=== PATIENT | female | born 1980 | race African-American/Black ===

== ENCOUNTER 2021-12-22 12:53 | Emergency (ER) | payer OTHER ==
[2021-12-22] MEDS ORDERED: MORPHINE 4 MG/ML SYR ONE (13:17)
[2021-12-22] MEDS ORDERED: ONDANSETRON 4 MG/2 ML VIAL ONE (13:17)
--- NOTE | 2021-12-22 13:30 | RAD REPORT ---
EXAM DESCRIPTION: RAD - Chest Single View - 12/22/2021 1:25 pm CLINICAL HISTORY: syncope COMPARISON: No comparisons FINDINGS: Lines: None. Lungs: No evidence of edema or pneumonia. Pleural: No significant pleural effusions or pneumothorax. Cardiac: The heart size is within normal limits. Bones: No acute fractures. Other: IMPRESSION: No acute cardiopulmonary disease.
[2021-12-22 13:49] LABS: Urine Blood Negative (Negative); Urine Glucose Negative (Negative); Urine Protein Negative (Negative); Urine Specific Gravity 1.025 (1.005-1.030)
[2021-12-22 13:56] LABS: Absolute Lymphocytes (CBC) 1.3 K/uL (0.7-4.9); Hematocrit 35.8 % (36.0-45.0); Lymphocytes % 17.7 % (15.3-44.8); MPV 7.6 fL (7.6-11.3); Protime INR 1.04; RBC Red Blood Cell Count 3.69 M/uL (3.86-4.86)
[2021-12-22 14:12] LABS: Albumin 3.4 g/dL (3.4-5.0); Bilirubin Direct 0.1 mg/dL (0-0.2); Bilirubin Total 0.3 mg/dL (0.2-1.0); Potassium 3.8 mmol/L (3.5-5.1); Protein, Total 6.7 g/dL (6.4-8.2); Troponin High Sensitivity 5.8 pg/mL (<58.9)
[2021-12-22 14:15] LABS: Urine Bacteria <20 /HPF (<20); Urine Mucus 1+ /HPF (NONE SEEN); Urine RBC <5 /HPF (NONE SEEN); Urine Trichomonas PRESENT (NONE SEEN)
[2021-12-22] MEDS ORDERED: LORazepam 2 MG/ML VIAL ONE (15:05)
--- NOTE | 2021-12-22 15:48 | RAD REPORT ---
EXAM DESCRIPTION: CTAngio Aorta For Dissection - 12/22/2021 3:38 pm CLINICAL HISTORY: abdominal pain COMPARISON: No comparisons TECHNIQUE: CT of the chest, abdomen, and pelvis was performed IV contrast using a CTA protocol of [facility] aorta. . All CT scans are performed using dose optimization technique as appropriate and may include automated exposure control or mA/KV adjustment according to patient size. FINDINGS: Thorax: Chest Wall: No abnormal mass Lungs: No acute abnormality. Pleura: No effusions or pneumothorax. Arabella/Mediastinum: No lymphadenopathy. Aorta/Pulmonary Arteries: Unremarkable Heart: Normal size. Abdomen/Pelvis: Liver: No acute abnormality or suspicious lesions. Biliary: No biliary ductal dilatation. Stomach: No significant focal abnormality. Duodenum: No significant focal abnormality. Pancreas: No significant abnormality. Spleen: No significant abnormality. Adrenal: No suspicious lesions. Kidney/ureter: No hydronephrosis. No renal calculi. Retroperitoneum: No retroperitoneal adenopathy. Vascular: No aneurysm. Bowel: No significant focal abnormality. Normal appendix. Peritoneum: Small volume of pelvic free fluid which is likely physiologic. Bladder: Grossly unremarkable. Reproductive: No adnexal masses. Bones: No acute fracture. Other: n/a IMPRESSION: No acute findings within the chest, abdomen, or pelvis. Specifically, no evidence of aor tic aneurysm or dissection. No pulmonary embolus.
--- NOTE | 2021-12-22 16:21 | ER ---
Nurse's Notes [facility] Name: Adriana Vogel Age: 41 yrs Sex: Female : 1980 Arrival Date: 12/22/2021 Time: 12:56 Bed 6 Private MD: Diagnosis: Lower abdominal pain, unspecified;UTI/ Urinary tract infection, site not specified;Syncope Near Presentation: 12/22 12:56 Chief complaint: EMS states: "pt was is reporting sudden lower abdominal pain. 20 G jd3 right wrist. 50 mcg of Fentanyl and 4 mg of Zofran.". Coronavirus screen: At this time, the client does not indicate any symptoms associated with coronavirus-19. Ebola Screen: No symptoms or risks identified at this time. Initial Sepsis Screen: Does the patient meet any 2 criteria? No. Patient's initial sepsis screen is negative. Does the patient have a suspected source of infection? No. Patient's initial sepsis screen is negative. Risk Assessment: Do you want to hurt yourself or someone else? Patient reports no desire to harm self or others. Onset of symptoms was December 22, 2021. 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 - Social history:: Smoking status: Patient denies any tobacco usage or history of. Screenin:05 Abuse screen: Denies threats or abuse. Nutritional screening: No deficits noted. jd3 Tuberculosis screening: No symptoms or risk factors identified. Fall Risk Ambulatory Aid- None/Bed Rest/Nurse Assist (0 pts). Gait- Normal/Bed Rest/Wheelchair (0 pts) Mental Status- Oriented to own ability (0 pts). Total Whitfield Fall Scale indicates No Risk (0-24 pts). Assessment: 13:03 General: Appears in no apparent distress. uncomfortable, Behavior is calm, cooperative, jd3 appropriate for age. Pain: Complains of pain in right lower quadrant and left lower quadrant Quality of pain is described as sharp, tender. Neuro: Mai Agitation-Sedation Scale (RASS): 0 - Alert and Calm Level of Consciousness is awake, alert, obeys commands, Oriented to person, place, time, situation. Cardiovascular: Denies chest pain, Capillary refill < 3 seconds Patient's skin is warm and dry. Respiratory: Airway is patent Respiratory effort is even, unlabored, Respiratory pattern is regular, symmetrical, Denies cough, shortness of breath. GI: Abdomen is non-distended, Abd is soft X 4 quads Abdomen is tender to palpation in right lower quadrant and left lower quadrant Reports lower abdominal pain, Patient currently denies diarrhea, nausea. : No signs and/or symptoms were reported regarding the genitourinary system. EENT: No signs and/or symptoms were reported regarding the EENT system. Derm: Skin is intact, Skin is dry, Skin is normal, Skin temperature is warm. Musculoskeletal: Circulation, motion, and sensation intact. Range of motion: intact in all extremities. 14:00 Reassessment: Patient appears in no apparent distress at this time. No changes from j previously documented assessment. Patient and/or family updated on plan of care and expected duration. Pain level reassessed. Patient is alert, oriented x 3, equal unlabored respirations, skin warm/dry/pink. 15:00 Reassessment: Patient appears in no apparent distress at this time. Patient and/or jd3 family updated on plan of care and expected duration. Pain level reassessed. Patient is alert, oriented x 3, equal unlabored respirations, skin warm/dry/pink. Patient states feeling better. 16:34 Reassessment: Patient appears in no apparent distress at this time. Patient and/or jd3 family updated on plan of care and expected duration. Pain level reassessed. Patient is alert, oriented x 3, equal unlabored respirations, skin warm/dry/pink. Patient states feeling better. Vital Signs: 13:02 BP 145 / 86; Pulse 75; Resp 17 S; Temp 98.3(O); Pulse Ox 100% on R/A; Weight 69.85 kg jd3 (R); Height 5 ft. 8 in. (172.72 cm) (R); Pain 6/10; 16:34 BP 136 / 76; Pulse 76; Resp 18 S; Pulse Ox 100% on R/A; jd3 13:02 Body Mass Index 23.42 (69.85 kg, 172.72 cm) jd3 ED Course: 12:56 Patient arrived in ED. jd3 12:57 Gerard Flanagan PA is PHCP. cp 12:58 Isac Donovan MD is Attending Physician. cp 13:00 Maintain EMS IV. Dressing intact. Good blood return noted. Site clean \\T\\ dry. Gauge \\T\\ jg 9 site: 20 r wrist. 13:01 Triage completed. jd3 13:02 Patricia Padron, WALLY is Primary Nurse. jg9 13:03 Arm band placed on. jd3 13:05 Patient has correct armband on for positive identification. Bed in low position. Call j light in reach. Side rails up X2. Adult w/ patient. Pulse ox on. NIBP on. 13:27 XRAY Chest (1 view) In Process Unspecified. EDMS 13:27 EKG done, by ED staff, reviewed by Gerard LANG. mb7 13:27 Basic Metabolic Panel Sent. mb7 13:28 LFT's Sent. mb7 13:28 Magnesium Sent. mb7 13:28 PT-INR Sent. mb7 13:28 Troponin HS Sent. mb7 13:28 CBC with Diff Sent. mb7 13:28 CMP Sent. mb7 13:28 Lipase Sent. mb7 14:00 Urine Microscopic Only Sent. mb7 15:34 Inserted saline lock: 22 gauge in right antecubital area, using aseptic technique. jl7 15:40 CT Aorta for Dissection In Process Unspecified. EDMS 17:08 No provider procedures requiring assistance completed. IV discontinued, intact, jl7 bleeding controlled, No redness/swelling at site. Pressure dressing applied. Administered Medications: 13:15 Drug: morphine 4 mg Route: IVP; Infused Over: 4 mins; Site: right wrist; jg9 14:00 Follow up: Response: No adverse reaction; Pain is decreased jg9 13:15 Drug: Zofran (Ondansetron) 4 mg Route: IVP; Site: right wrist; jg9 14:00 Follow up: Response: No adverse reaction; Nausea is decreased jg9 15:07 Drug: Ativan (LORazepam) 1 mg Route: IVP; Site: right wrist; jd3 15:42 Follow up: Response: No adverse reaction; Anxiety decreased jg9 16:40 Drug: metroNIDAZOLE 2 grams Route: PO; jd3 17:09 Follow up: Response: No adverse reaction jl7 16:40 Drug: Rocephin - (cefTRIAXone) 1 grams Route: IVPB; Infused Over: 30 mins; Site: right jd3 antecubital; 17:05 Follow up: Response: No adverse reaction; IV Status: Completed infusion [facility] Medication: 13:05 VIS not applicable for this client. jd3 Outcome: 16:21 Discharge ordered by MD. cp 17:08 Discharged to home via wheelchair, with family. jl7 17:08 Condition: stable 17:08 Discharge instructions given to patient, Instructed on discharge instructions, follow up and referral plans. medication usage, Demonstrated understanding of instructions, follow-up care, medications, Prescriptions given X 1. 17:09 Patient left the ED. [facility] Signatures: Dispatcher [employer] EDMS Gerard Flanagan PA PA cp Leal, Jahala, RN RN 7 Tommie Gaines RN RN jd3 Breneman, Mary [facility] Patricia Padron RN RN jg9 Corrections: (The following items were deleted from the chart) 13:41 13:27 LIPASE+C.LAB.BRZ drawn and sent. [facility] EDMS 13:41 13:28 CBC+H.LAB.BRZ drawn and sent. [facility] EDMS
--- NOTE | 2021-12-22 16:21 | EDPHYS ---
Physician Documentation [facility] Name: Adriana Vogel Age: 41 yrs Sex: Female : 1980 Arrival Date: 12/22/2021 Time: 12:56 Bed 6 Private MD: ED Physician Isac Donovan HPI: 12/22 13:28 This 41 yrs old Female presents to ER via EMS with complaints of Lower Abdomen Pain. cp 13:28 The patient presents with abdominal pain in the lower abdomen. cp 13:28 Onset: The symptoms/episode began/occurred suddenly, today. The symptoms do not cp radiate. Associated signs and symptoms: none. 13:28 The symptoms are described as constant. Severity of pain: in the emergency department cp the pain has improved mildly. 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 - Social history:: Smoking status: Patient denies any tobacco usage or history of. ROS: 13:30 Constitutional: Negative for body aches, chills, fever, poor PO intake. cp 13:30 Abdomen/GI: Positive for abdominal pain, of the right lower quadrant and left lower cp quadrant, Negative for vomiting, diarrhea, constipation, black/tarry stool, rectal bleeding. 13:30 : Negative for urinary symptoms, hematuria, vaginal bleeding. Exam: 13:25 ECG was reviewed by the Attending Physician. cp 13:35 Constitutional: The patient appears in no acute distress, alert, awake, cp non-diaphoretic, non-toxic, well developed, well nourished. 13:35 Head/Face: Normocephalic, atraumatic. cp 13:35 Eyes: Periorbital structures: appear normal, Pupils: equal, round, and reactive to cp light and accomodation, Extraocular movements: intact throughout, Conjunctiva: normal, no exudate, no injection, Sclera: no appreciated abnormality, Lids and lashes: appear normal, bilaterally. 13:35 ENT: External ear(s): are unremarkable, Nose: is normal, Mouth: Lips: moist, Oral mucosa: pink and intact, moist, Posterior pharynx: Airway: no evidence of obstruction, patent. 13:35 Neck: ROM/movement: is normal, is supple, without pain, no range of motions limitations. 13:35 Chest/axilla: Inspection: normal. 13:35 Cardiovascular: Rate: normal, Rhythm: regular. 13:35 Respiratory: the patient does not display signs of respiratory distress, Respirations: normal, no use of accessory muscles, no retractions, labored breathing, is not present, Breath sounds: are clear throughout, no decreased breath sounds, no stridor, no wheezing. 13:35 Abdomen/GI: Inspection: abdomen appears normal, Bowel sounds: active, all quadrants, Palpation: soft, in all quadrants, moderate abdominal tenderness, in the right lower quadrant and left lower quadrant, rebound tenderness, is not appreciated, voluntary guarding, is elicited in the right lower quadrant and left lower quadrant. 13:35 Back: CVA tenderness, is absent. 13:35 Neuro: Orientation: to person, place \T\ time. Mentation: is normal, Motor: moves all fours, strength is normal, Sensation: is normal. Vital Signs: 13:02 BP 145 / 86; Pulse 75; Resp 17 S; Temp 98.3(O); Pulse Ox 100% on R/A; Weight 69.85 kg jd3 (R); Height 5 ft. 8 in. (172.72 cm) (R); Pain 6/10; 16:34 BP 136 / 76; Pulse 76; Resp 18 S; Pulse Ox 100% on R/A; jd3 13:02 Body Mass Index 23.42 (69.85 kg, 172.72 cm) jd3 MDM: 13:01 Patient medically screened. cp 16:20 Data reviewed: vital signs, nurses notes, lab test result(s), radiologic studies, CT cp scan. 16:20 Differential diagnosis: appendicitis, bowel obstruction, cholecystitis, Cholelithiasis, cp diverticulitis, non-specific abd pain, Peritonitis, Pyelonephritis, Ureterolithiasis, urinary tract infection. Counseling: I had a detailed discussion with the patient and/or guardian regarding: the historical points, exam findings, and any diagnostic results supporting the discharge/admit diagnosis, lab results, radiology results, to return to the emergency department if symptoms worsen or persist or if there are any questions or concerns that arise at home. Response to treatment: the patient's symptoms have markedly improved after treatment, and as a result, I will discharge patient. Special discussion: Based on the patient's Hx, exam, and Dx evaluation, there is no indication for emergent surgery or inpatient Tx. It is understood by the patient/guardian that if the Sx's persist or worsen they need to return immediately for re-evaluation. 12/22 13:02 Order name: CBC with Diff; Complete Time: 13:57 [facility] 12/22 13:58 Interpretation: Normal except: RBC 3.69; HCT 35.8; MELISSA% 76.0. 12/22 13:02 Order name: CMP; Complete Time: 15:55 [facility] [place] 12/22 15:55 Interpretation: Normal except: CL 108; AST 13; CA 8.4; A/G 1.0. 12/22 13:02 Order name: Lipase; Complete Time: 15:55 [facility] [place] 12/22 13:04 Order name: Basic Metabolic Panel 12/22 13:04 Order name: LFT's; Complete Time: 15:55 12/22 13:04 Order name: Magnesium; Complete Time: 15:55 12/22 13:04 Order name: PT-INR; Complete Time: 13:57 12/22 13:04 Order name: Troponin HS; Complete Time: 15:55 12/22 13:04 Order name: XRAY Chest (1 view); Complete Time: 13:57 12/22 13:58 Interpretation: Report review. 12/22 13:04 Order name: Urine Microscopic Only; Complete Time: 15:55 12/22 15:55 Interpretation: Normal except: UWBC 5-10; SQEPI 5-10; TRICH PRESENT. 12/22 13:50 Order name: Urine Dipstick-Ancillary; Complete Time: 13:57 [facility] 12/22 13:58 Interpretation: Normal except: UESTR 1+. 12/22 14:23 Order name: Urine Culture EDOH 12/22 13:04 Order name: EKG; Complete Time: 13:04 12/22 13:04 Order name: Cardiac monitoring; Complete Time: 13:23 12/22 13:04 Order name: EKG - Nurse/Tech; Complete Time: 13:27 cp 12/22 13:04 Order name: IV Saline Lock; Complete Time: 13:23 cp 12/22 13:04 Order name: Labs collected and sent; Complete Time: 13:23 cp 12/22 13:04 Order name: O2 Per Protocol; Complete Time: 15:42 cp 12/22 13:04 Order name: O2 Sat Monitoring; Complete Time: 13:23 cp 12/22 13:04 Order name: Urine Dipstick-Ancillary (obtain specimen); Complete Time: 14:00 cp 12/22 13:04 Order name: CT Aorta for Dissection; Complete Time: 15:55 cp EC:25 Rate is 63 beats/min. Rhythm is regular. IN interval is normal. QRS interval is normal. cp QT interval is normal. T waves are Inverted in lead aVR. Interpreted by me. Reviewed by me. Administered Medications: 13:15 Drug: morphine 4 mg Route: IVP; Infused Over: 4 mins; Site: right wrist; jg9 14:00 Follow up: Response: No adverse reaction; Pain is decreased jg9 13:15 Drug: Zofran (Ondansetron) 4 mg Route: IVP; Site: right wrist; jg9 14:00 Follow up: Response: No adverse reaction; Nausea is decreased jg9 15:07 Drug: Ativan (LORazepam) 1 mg Route: IVP; Site: right wrist; jd3 15:42 Follow up: Response: No adverse reaction; Anxiety decreased jg9 16:40 Drug: metroNIDAZOLE 2 grams Route: PO; jd3 17:09 Follow up: Response: No adverse reaction jl7 16:40 Drug: Rocephin - (cefTRIAXone) 1 grams Route: IVPB; Infused Over: 30 mins; Site: right jd3 antecubital; 17:05 Follow up: Response: No adverse reaction; IV Status: Completed infusion jl7 Disposition: 17:10 Co-signature as Attending Physician, Isac Donovan MD I agree with the assessment and kdr plan of care. Disposition Summary: 12/22/21 16:21 Discharge Ordered Location: Home cp Problem: new cp Symptoms: have improved cp Condition: Stable cp Diagnosis - Lower abdominal pain, unspecified cp - UTI/ Urinary tract infection, site not specified cp - Syncope Near cp Followup: cp - With: Private Physician - When: 1 - 2 days - Reason: Recheck today's complaints Discharge Instructions: - Discharge Summary Sheet cp - Abdominal Pain, Adult cp - Syncope cp - Urinary Tract Infection, Adult cp Forms: - Medication Reconciliation Form cp - Thank You Letter cp - Antibiotic Education cp - Prescription Opioid Use cp Prescriptions: - cefpodoxime 100 mg Oral Tablet - take 1 tablet by ORAL route every 12 hours for 7 days take with food; 14 cp tablet; Refills: 0, Product Selection Permitted Signatures: Dispatcher [employer] EDMS Isac Donovan MD MD kdr Gerard Flanagan PA PA cp Tommie Gaines RN RN jd3 Patricia Padron RN RN jg9 Kristine Carrillo RN jl7 Corrections: (The following items were deleted from the chart) 13:09 13:02 IV Saline Lock ordered. jg9 jg9 13:09 13:02 Labs collected and sent ordered. jg9 jg9 13:41 13:04 CBC+H.LAB.BRZ ordered. EDMS EDMS 13:41 13:04 LIPASE+C.LAB.BRZ ordered. EDMS EDMS 15:55 15:55 Normal except: CL 108. cp cp
[2021-12-22] MEDS ORDERED: CEFTRIAXONE 1000 MG/VIAL ONE (16:31)
[2021-12-22] MEDS ORDERED: NA CHLORIDE 0.9% 50 ML ONE (16:32)
[2021-12-22] MEDS ORDERED: metroNIDAZOLE 500 MG TABLET ONE (16:32)
[2021-12-22 17:25] VITALS: TEMP 98.3; O2SAT 100
[2021-12-22 17:30] VITALS: BP 136/76
--- NOTE | 2021-12-22 19:16 | EKG ---
Test Date: 2021-12-22 Test Time: 13:19:22 Mortgage Loan Assistant: MB MEASUREMENT RESULTS: Intervals: Rate: 63 AK: 168 QRSD: 72 QT: 418 QTc: 427 [place]: P: 63 AK: 168 QRS: 6 T: 41 INTERPRETIVE STATEMENTS: Normal sinus rhythm Low voltage QRS Borderline ECG No previous ECG available for comparison Electronically Signed On 12-22-21 19:15:41 CDT by Filipe Brambila
== END 2021-12-22 17:09 | disposition home or self-care (01) ==
LOC: ER 12:53
DX: N39.0 Urinary tract infection, site not specified (principal); R55 Syncope and collapse
CPT/HCPCS: 93005; 87088; 85025; 87086; 36415; 83735; 85610; 82248; 84484; 83690; 80053; 71275; 74175; 71045; Q9967; J2405; 81003; 81015